=== PATIENT | female | born 1935 | race Caucasian/White ===

== ENCOUNTER 2017-07-22 07:41 | Day surgery (SDC) | payer MEDICARE, MEDICAID ==
[~2017-07-22 07:41] MED LIST: AMOXICOT250 MG PO; CLARITIN 10MG T10 MG; FLEXERIL10 MG PO; MOTRIN 600MG.600 MG PO; TESSALON PERLE100 M1 PO; TRAMADOL 50MG T50 MG PO
--- NOTE | 2017-07-22 08:46 | Operative Note ---
Upper GI Endoscopy Procedure date: 07/22/17 Date of : 31 Procedure:Upper GI Endoscopy Esophago-gastroduodenoscopy with cold biopsies Indications: Mrs. Crespo is an 81-year-old female who is here for diagnostic upper endoscopy and colonoscopy. She did have black stools or melena one month ago. That evening she felt sick to her stomach and had nausea and generalized pain. Think differential and reports no use of Pepto-Bismol. The patient does have some frequent intermittent hiccups and belching. She reports no heartburn, early satiety, indigestion or dyspepsia. She has occasional dysphagia. She has had no change in bowel function. She reports no hematochezia, fatigue or weight loss. She has no family history of colon cancer. She reports no anemia. Performing Provider: Néstor De Jesus MD Referring Provider: Anne Marie Monaco M.D. Sedation: Fentanyl 100 mg IV/Versed 5 mg IV Procedure: Prior to the procedure, a history and physical exam was performed, and patients medications and allergies were reviewed. The risks and benefits of the procedure and the sedation options and risks were discussed with the patient. All questions were answered and informed consent was obtained. The patient was brought to the procedure room. Patient identification and proposed procedure were verified by the physician and the nurse. The patient was placed in a left lateral decubitus position and the scope was passed under direct vision. Throughout the procedure, the patient's blood pressure, pulse, and oxygen saturations were monitored continuously. The endoscope was introduced through the mouth, and advanced to the second part of duodenum. The upper GI endoscopy was accomplished without difficulty. The patient tolerated the procedure well. Findings: The scope was passed directly into the upper esophagus and advanced to the fourth portion of the duodenum. The post bulbar duodenum and duodenal bulb were normal with normal mucosa and conniventes. The scope was withdrawn through a normal duodenal bulb and pylorus into the stomach. There was evidence of chronic atrophic gastritis of the body and fundus of the stomach. There was no ulcerations or erosions. Cold biopsies were taken from the body of the stomach to exclude intestinal metaplasia. Upon retroflexion there was no hiatal hernia. The scope was then withdrawn into the esophagus. There were very faint esophageal varices. There was no stigmata of hemorrhage. There was evidence of nonerosive gastroesophageal reflux disease. There was no evidence of Lechuga's esophagus or reflux esophagitis. The remainder of the esophageal mucosa was normal. Immediate complications: None EBL (ml): 0 Impression: 1. Faint grade 01 esophageal varices 2. Chronic atrophic gastritis Recommendations: I will follow-up the biopsies. I would consider checking B12 levels, iron levels , complete blood count and H. pylori antibody/anti-parietal cell antibody. I will proceed with diagnostic colonoscopy. There is no source for any gastrointestinal hemorrhage. at [id number]
--- NOTE | 2017-07-22 09:10 | Operative Note ---
Colonoscopy ([facility]) Procedure date: 07/22/17 Date of : 31 Procedure:Colonoscopy Colonoscopy with cold snare polypectomy and Endo Clip placement Indications: Mrs. Crespo is an 81-year-old female who is here for diagnostic upper endoscopy and colonoscopy. She did have black stools or melena one month ago. That evening she felt sick to her stomach and had nausea and generalized pain. Think differential and reports no use of Pepto-Bismol. The patient does have some frequent intermittent hiccups and belching. She reports no heartburn, early satiety, indigestion or dyspepsia. She has occasional dysphagia. She has had no change in bowel function. She reports no hematochezia, fatigue or weight loss. She has no family history of colon cancer. She reports no anemia. Performing Provider: Néstor De Jesus MD Referrring Provider: Anne Marie Monaco M.D. Sedation: Fentanyl 100 mg IV/Versed 7 mg IV (combined sedation for both upper endoscopy/ colonoscopy) Procedure: Prior to the procedure, a history and physical exam was performed, and patient medications and allergies were reviewed. The risks and benefits of the procedure and the sedation options and risks were discussed with the patient. All questions were answered and informed consent was obtained. Patient identification and proposed procedure were verified by the physician and the nurse. The patient was placed in a left lateral decubitus position. Throughout the procedure, the patient's blood pressure, pulse, and oxygen saturations were monitored continuously. Findings: On digital rectal examination there was normal rectal tone. There were no external hemorrhoids. The colonoscope was introduced through the anal canal to the rectum and advanced to the cecum. The ileocecal valve and appendiceal orifice were identified. The scope was advanced a short distance into the ileum which appeared grossly normal. The scope was then withdrawn into the colon. The cecum, ascending and transverse colon and mucosa were grossly normal. There were scattered extensive diverticuli throughout the descending and sigmoid colon ( LEFT colon). There was a pedunculated 12 mm polyp in the maximal sigmoid removed via cold snare polypectomy. The proximal stalk was clipped using an Endo Clip to provide hemostasis. The rectum itself was normal. Upon retroflexion within the rectum there were grade 1 internal hemorrhoids. Impressions: 1. Pedunculated sigmoid colon polyp (12 mm) 2. Extensive left-sided diverticulosis 3. Grade 1 internal hemorrhoids Recommendations: Based upon the patient's age, I am not convinced that she will require any further surveillance colonoscopy. I will follow up the polyp histology. I would encourage fiber supplementation on a long-term daily maintenance basis. Complications: None EBL (ml): 0 at 0910
[2017-07-22 14:10] VITALS: BP 159/90
[2017-07-23 08:39] LABS: Iron 54 ug/dL (27-139); Iron Saturation 25 % (15-55); UIBC 164 ug/dL (118-369); Vitamin B12 131 pg/mL (211-946)
[2017-07-25 14:40] LABS: Antiparietal Cell Antibody 48.8 Units (0.0-20.0)
== END 2017-07-22 10:45 | disposition home or self-care (01) ==
LOC: SDC 07:41
PROVIDERS: Internal Medicine Gastroenterology
PROC: 0DB68ZX Excision of Stomach, Via Natural or Artificial Opening Endoscopic, Diagnostic (ICD-10-PCS; 2017-07-22)
PROC: 0DBN8ZX Excision of Sigmoid Colon, Via Natural or Artificial Opening Endoscopic, Diagnostic (ICD-10-PCS; principal; 2017-07-22 08:30)
DX: K63.5 Polyp of colon (principal); K57.30 Diverticulosis of large intestine without perforation or abscess without bleeding; K64.0 First degree hemorrhoids; I85.00 Esophageal varices without bleeding; K29.40 Chronic atrophic gastritis without bleeding